=== PATIENT | female | born 1950 | race Caucasian/White ===

== ENCOUNTER 2019-03-19 10:38 | Observation (INO) | payer OTHER ==
[2019-03-19 10:52] VITALS: BMI 27.8
--- NOTE | 2019-03-19 11:11 | PDOC ---
History of Present Illness - General Chief Complaint: Chest Pain Stated Complaint: CHEST PAIN/SHORTNESS OF BREATH Time Seen by Provider: 03/19/19 11:09 - History of Present Illness Initial Comments: 03/19/19 11:10 68 yo F PMH GERD, cholecystectomy, HTN, HLD, hypothyroidism, lower back pain 2/ 2 disc herniations, PUD, p/w sternal burning chest pain. Further complains of chest pressure and difficulty breathing. Separate to this, states that she has been having a lot of "gas buildup that is relived by burping, but I can't burp it out anymore". Reports start of symptoms one week ago, called PCP and started omeprazole BID for presumed GERD, however pain became worse and burning. Today, also having associated difficulty getting a full breath and ongoing reflux, which convinced her to come in. Denies CP, TOMAS, N/V, fevers/chills, constipation/diarrhea, urinary changes. Past History - Past Medical History Allergies/Adverse Reactions: Allergies Allergy/AdvReac Type Severity Reaction Status Date / Time iodine Allergy Verified 03/19/19 10:55 nitrofurantoin Allergy Verified 03/19/19 10:55 [From Macrobid] nitrofurantoin Allergy Verified 03/19/19 10:55 macrocrystalline [From Macrobid] shellfish derived Allergy Verified 03/19/19 10:55 Sulfa (Sulfonamide Allergy Verified 03/19/19 10:55 Antibiotics) Home Medications: Ambulatory Orders Alprazolam [Xanax] 0.25 mg PO HS PRN #0 tablet 04/29/13 Metoprolol Succinate [Toprol XL -] 50 mg PO HS #0 tab.sr.24h 04/29/13 Rosuvastatin [Crestor -] 5 mg PO HS #0 tablet 04/29/13 Levothyroxine [Synthroid -] 75 mcg PO DAILY 07/02/15 Ranitidine [Zantac -] 150 mg PO BID 07/02/15 Polyethylene Glycol 3350 [Miralax (For Daily Use) -] 17 gm PO ASDIR 09/02/15 COPD: No GI Disorders: (Gastric reflux) HTN: Yes Hypercholesterolemia: Yes Thyroid Disease: Yes - Surgical History Cholecystectomy: Yes - Immunization History Immunization Up to Date: No - Psycho Social/Smoking Cessation Hx Smoking History: Never smoked Have you smoked in the past 12 months: No Information on smoking cessation initiated: No Hx Alcohol Use: No Drug/Substance Use Hx: No Substance Use Type: None Review of Systems - Review of Systems Constitutional: No: Chills, Diaphoresis, Fever HEENTM: No: Recent change in vision, Hearing Loss, Difficulty Swallowing Respiratory: Yes: Shortness of Breath. No: Cough, Orthopnea Cardiac (ROS): Yes: Chest Pain, Chest Tightness. No: Edema, Irregular Heart Rate, Lightheadedness, Palpitations ABD/GI: No: Constipated, Diarrhea, Nausea, Vomiting : No: Burning, Dysuria, Discharge, Frequency, Flank Pain Neurological: No: Headache, Numbness, Tingling, Weakness *Physical Exam - Vital Signs Last Vital Signs Temp Pulse Resp BP Pulse Ox 97.6 F 84 16 149/83 100 03/19/19 10:44 03/19/19 10:44 03/19/19 10:44 03/19/19 10:44 03/19/19 10:44 - Physical Exam Comments: 03/19/19 11:30 Gen: well-developed, well-nourished, mild distress Neuro: AAOX4, CN II-XII intact, FTN intact, EOMI, PERRLA, 5/5 strength, SILT HEENT: atraumatic, normocephalic, dry mucous membranes Neck: trachea midline, supple CV: regular rate, regular rhythm, no murmurs, rubs, or gallops Pulm: CTA b/l, no wheezing Abd: soft, non-distended, non-tender MSK: full ROM, intact pulses Extr: no edema, no deformities Skin: warm, dry Heart Score/ECG Review - History History: Moderately suspicious - Electrocardiogram EKG: Normal - Age Age: >/= 65 - Risk Factors Risk Factors Heart Score: Yes Hx Hypercholesterolemia, Yes Hx Hypertension, Yes Positive family hx of cardiac disease Based on the list above the patient has:: >/=3 risk factors or Hx atherosclerotic disease - Troponin Troponin: </= normal limit - Score Heart Score - Total: 5 ED Treatment Course - LABORATORY CBC & Chemistry Diagram: 03/19/19 11:34 03/19/19 11:34 Medical Decision Making - Medical Decision Making 03/19/19 11:27 ACS v GERD v PUD. - CBC, CMP, lipase - EKG, trop, CXR - Pepcid, Maalox, viscous lido, fluids - ctm EKG 85 bpm, normal sinus, ST depression in I, V5, V6, and II. 03/19/19 11:55 CXR with prominent aortic knob, no acute pathology. 03/19/19 14:06 Patient feeling unchanged despite GI cocktail. Will admit for r/o atypical chest pain. 03/19/19 16:24 Patient with possible IV contrast allergy. Will give 1 dose of hydrocortisone IV 200 mg now, then another dose in 4 hours with 50 mg IV diphenhydramine, with CT scans 1 hour after that. Discharge - Discharge Information Problems reviewed: Yes Clinical Impression/Diagnosis: Chest pain Condition: Stable - Follow up/Referral - Patient Discharge Instructions - Post Discharge Activity
[2019-03-19] MEDS ORDERED: LIDOCAINE VISCOUS 2% ORAL/TOP 20 ML UNIT-DOSE CUP MM ONE (11:21)
[2019-03-19] MEDS ORDERED: FAMOTIDINE 20 MG/50 ML IVPB 20 MG/50 ML MG IVPB ONE ×2 (11:21→11:33)
[2019-03-19] MEDS ORDERED: SODIUM CHLORIDE 1,000 ML IV STA (11:21)
[2019-03-19] MEDS ORDERED: MAG HYDROX/AL HYDROX/SIMETH 30 ML UNIT-DOSE CUP PO ONE (11:21)
[2019-03-19] MEDS ORDERED: MAG HYDROX/AL HYDROX/SIMETH 30 ML UNIT-DOSE CUP ONE (11:32)
[2019-03-19] MEDS ORDERED: LIDOCAINE VISCOUS 2% ORAL/TOP 20 ML UNIT-DOSE CUP ONE (11:32)
[2019-03-19 12:09] LABS: BASO % 0.4 % (0-2.0); EOS % 0.5 % (0-4.5); HEMATOCRIT 46.8 % (32.4-45.2); HEMOGLOBIN 15.6 GM/dL (10.7-15.3); LYMPH % 27.4 % (8-40); MCH 31.2 pg (25.7-33.7); MCHC 33.3 g/dl (32.0-36.0); MEAN CELL VOLUME 93.6 fl (80-96); MEAN PLT VOLUME 8.4 fl (7.5-11.1); MONO % 9.2 % (3.8-10.2); NEUT % 62.5 % (42.8-82.8); PLATELET COUNT 374 K/MM3 (134-434); RDW 13.9 % (11.6-15.6); WHITE BLOOD COUNT 7.3 K/mm3 (4.0-10.0)
[2019-03-19 12:34] LABS: ALBUMIN 4.3 g/dl (3.4-5.0); BILIRUBIN,TOTAL 0.6 mg/dL (0.2-1); BLOOD UREA NITROGEN 12.6 mg/dL (7-18); CALCIUM 9.5 mg/dL (8.5-10.1); CREATININE 0.7 mg/dL (0.55-1.3); TOT PROT 8.4 g/dl (6.4-8.2)
[2019-03-19 12:46] LABS: INR 0.93 (0.83-1.09)
[2019-03-19] MEDS ORDERED: ONDANSETRON 4 MG/2 ML VIAL IVPUSH ONE (14:04)
[2019-03-19] MEDS ORDERED: morphine CARPU-JECT 4 MG/1 ML DISP.SYRIN IVPUSH ONE (14:04)
[2019-03-19] MEDS ORDERED: MORPHINE SULFATE 2 MG/ML VIAL ONE (14:32)
[2019-03-19] MEDS ORDERED: ONDANSETRON 4 MG/2 ML VIAL ONE (14:32)
--- NOTE | 2019-03-19 15:24 | PDOC ---
Documentation entered by Justice Chavez SCRIBE, acting as scribe for Elver Foley MD. Elver Foley MD: This documentation has been prepared by the Scott mac Daniel, SCRIBE, under my direction and personally reviewed by me in its entirety. I confirm that the documentation accurately reflects all work, treatment, procedures, and medical decision making performed by me. Attending Attestation - Resident Resident Name: MondragonFely - ED Attending Attestation I have performed the following: I have examined & evaluated the patient, The case was reviewed & discussed with the resident, I agree w/resident's findings & plan, Exceptions are as noted - HPI HPI: 03/19/19 11:52 The patient is a 68 year old female with a past medical history of GERD, HTN, HLD, hypothyroidism, disc herniations, and PUD here today for evaluation of epigastric pain. The patient reports that her epigastric pain radiates up through her chest into her throat, is a burning sensation, started one week ago , and has been getting worse. She also notes shortness of breath for the past few days which she describes as needing to burp. Patient reports taking 9 tablespoons of Gaviscon and her daily omeprazole at home without relief of her symptoms. Patient denies headache, lightheadedness, focal weakness/numbness. Denies fever , chills. Denies nausea, vomiting, abdominal pain, diarrhea. Denies calf pain or lower extremity edema. Allergies: iodine, nitrofurantoin, nitrofurantoin macrocrystalline, sulfa, shellfish Surgical history: cholecystectomy - Physicial Exam PE: 03/19/19 12:37 GENERAL: Awake, alert, and fully oriented, in no acute distress, pleasant. EYES: PERRLA, EOMI, sclera anicteric, conjunctiva clear ENT: Oropharynx clear without exudates. Moist mucosa NECK: Normal ROM, supple, no lymphadenopathy, JVD, or masses LUNGS: Breath sounds equal, clear to auscultation bilaterally. No wheezes, and no crackles HEART: Regular rate and rhythm, normal S1 and S2, no murmurs, rubs or gallops ABDOMEN: Soft, nontender, normoactive bowel sounds. No guarding, no rebound. No masses EXTREMITIES: Normal range of motion, no edema. No cords, erythema, or tenderness. Equal pulses and BP b/l BACK: No midline spinal tenderness in cervical/thoracic/lumbar region NEUROLOGICAL: Normal speech, cranial nerves intact, 5/5 strength in all 4 extremities, normal sensation to light touch in all 4 extremities, normal cerebellar exam, normal gait SKIN: Warm, Dry, normal turgor, no rashes or lesions noted. - Medical Decision Making 68-year-old female with a history of GERD presents the emergency department with epigastric pain radiating up to her throat, describes it as burning at times as well as a pressure in her chest. Patient continues to have chest pain despite home omeprazole, and Pepcid, Maalox, viscous lidocaine, zofran, morphine in the emergency department. Chest x-ray with widened mediastinum. As such we will obtain a CTA to rule out dissection. Anticipate admission. Per instrument/control technician, pt has had IV contrast allergy in the past (was listed only as iodine allergy) Pt states "I think I had throat itching and felt warm last time I had IV contrast." She states she did not require medications, intubation, but does not remember the exact details. As such, we initiated a 6 hour pre-treatment protocol as follows Two doses of 200 mg intravenous hydrocortisone administered 5 and 1 hour prior to contrast material administration, plus 50 mg intravenous diphenhydramine administered 1 hour prior to contrast material administration. Case has been discussed with admitting team for continuation of protocol to obtain CTA and further mgmt Case discussed in detail with admitting physician including history, physical exam and ancillary studies. Admitting physician has assumed care for the patient, will follow all pending diagnostics and will complete the evaluation and treatment. Heart Score/ECG Review #1 03/19/19 15:27 Twelve-lead EKG was performed and reviewed by me. Normal sinus rhythm, rate 85. Normal axis. No ST elevations. ST depressions in 1, 2, V5 and V6.
--- NOTE | 2019-03-19 15:51 | EKG ---
Test Reason : Blood Pressure : / mmHG Vent. Rate : 085 BPM Atrial Rate : 085 BPM P-R Int : 128 ms QRS Dur : 084 ms QT Int : 382 ms P-R-T Axes : 073 020 034 degrees QTc Int : 454 ms NORMAL SINUS RHYTHM POSSIBLE LEFT ATRIAL ENLARGEMENT NONSPECIFIC ST ABNORMALITY ABNORMAL ECG WHEN COMPARED WITH ECG OF 02-SEP-2015 10:11, NO SIGNIFICANT CHANGE WAS FOUND Confirmed by ARACELY HIDALGO, EULALIA ([id number]) on 03/19/2019 3:51:02 PM Referred By: Confirmed By:EULALIA JESSICA MD
[2019-03-19] MEDS ORDERED: HYDROCORTISONE SOD SUCCINATE 100 MG/2 ML VIAL IVPUSH ONE ×2 (16:23→20:20)
[2019-03-19] MEDS ORDERED: HYDROCORTISONE SOD SUCCINATE ONE ×2 (16:37→19:43)
--- NOTE | 2019-03-19 17:28 | HP ---
CHIEF COMPLAINT: Burning chest pain PCP: HISTORY OF PRESENT ILLNESS: 68 yo F PMH GERD, cholecystectomy, haital hernia, HTN, HLD, hypothyroidism, lower back pain 2/2 disc herniations, PUD, p/w substernal burning chest pain of one week duration that is associated with nausea and difficulty breathing. Pt reports that one week ago, she called her PCP for the burning sensation, and he recommended taking PPIs for 3 days, which did not relieve her symptoms. After stopping her PPI, her symptoms began to worsen. On saturday 03/17, pt had difficulty keeping food down and felt "fullness" in her chest and therefore she tried to sleep it off. night she had severe burning pain which made it difficult for her to breath. She has been admitted at [facility] in the past for epigastric pain, during which Dr. No saw her and CT a/p did not reveal any acute abnormalities. Currently, pt denies f/c/v/d, abdominal pain, melena, urinary symptoms, back pain, palpitations. ER course was notable for: (1)Zofran given (2)EKG- NSR (3)CTA A/p ordered-r/o aortic dissection Recent Travel: denies PAST MEDICAL HISTORY: GERD,haital hernia, HTN, HLD, hypothyroidism, lower back pain 2/2 disc herniations, PUD, PAST SURGICAL HISTORY: Cholecystectomy, endoscopy 10 years ago for PUD. Social History: Smoking:denies Alcohol:denies Drugs: denies Allergies iodine Allergy (Verified 03/19/19 10:55) nitrofurantoin [From Macrobid] Allergy (Verified 03/19/19 10:55) nitrofurantoin macrocrystalline [From Macrobid] Allergy (Verified 03/19/19 10:55 ) shellfish derived Allergy (Verified 03/19/19 10:55) Sulfa (Sulfonamide Antibiotics) Allergy (Verified 03/19/19 10:55) HOME MEDICATIONS: Home Medications Medication Instructions Recorded Alprazolam [Xanax] 0.25 mg PO HS PRN #0 tablet 04/29/13 Metoprolol Succinate [Toprol XL -] 50 mg PO HS #0 tab.sr.24h 04/29/13 Rosuvastatin [Crestor -] 5 mg PO HS #0 tablet 04/29/13 Levothyroxine [Synthroid -] 75 mcg PO DAILY 07/02/15 Ranitidine [Zantac -] 150 mg PO BID 07/02/15 Polyethylene Glycol 3350 [Miralax 17 gm PO ASDIR 09/02/15 (For Daily Use) -] REVIEW OF SYSTEMS CONSTITUTIONAL: Absent: fever, chills, weight change HEENT: Absent: visual changes CARDIOVASCULAR: Absent: syncope, palpitations, lightheadedness, peripheral edema RESPIRATORY: Absent: cough, shortness of breath, orthopnea, wheezing, stridor, GASTROINTESTINAL: Absent: abdominal pain, nausea, vomiting, diarrhea, constipation, melena, hematochezia NEUROLOGIC: Absent: headache, focal weakness or paresthesias, dizziness, bladder or bowel incontinence PHYSICAL EXAMINATION Vital Signs - 24 hr 03/19/19 03/19/19 03/19/19 10:44 14:43 14:44 Temperature 97.6 F 97.5 F L Pulse Rate 84 Pulse Rate [ 89 Apical] Respiratory 16 18 Rate Blood Pressure 149/83 Blood Pressure 142/73 [Right Arm] O2 Sat by Pulse 100 100 99 Oximetry (%) GENERAL: Awake, alert, and fully oriented, in no acute distress. EYES: Pupils equal, round and reactive to light, EARS, NOSE, THROAT: Moist mucous membranes. NECK: supple without lymphadenopathy, JVD, LUNGS: Breath sounds equal, clear to auscultation bilaterally. No wheezes, and no crackles. HEART: Regular rate and rhythm, normal S1 and S2 without murmur, rub or gallop. ABDOMEN: Soft, nontender, +distended, normoactive bowel sounds, no guarding, no rebound, no masses. MUSCULOSKELETAL: Normal range of motion at all joints. No CVA tenderness. UPPER EXTREMITIES: 2+ pulses, warm, well-perfused. LOWER EXTREMITIES: 2+ pulses, warm, well-perfused. NEUROLOGICAL: Cranial nerves II-XII intact. SKIN: Warm, dry, Laboratory Results - last 24 hr CBC,CMP WBC 7.3 K/mm3 (4.0-10.0) 03/19/19 11:34 RBC 5.00 M/mm3 (3.60-5.2) 03/19/19 11:34 Hgb 15.6 GM/dL (10.7-15.3) H 03/19/19 11:34 Hct 46.8 % (32.4-45.2) H 03/19/19 11:34 MCV 93.6 fl (80-96) 03/19/19 11:34 MCH 31.2 pg (25.7-33.7) 03/19/19 11:34 MCHC 33.3 g/dl (32.0-36.0) 03/19/19 11:34 RDW 13.9 % (11.6-15.6) 03/19/19 11:34 Plt Count 374 K/MM3 (134-434) D 03/19/19 11:34 MPV 8.4 fl (7.5-11.1) 03/19/19 11:34 Absolute Neuts (auto) 4.6 K/mm3 (1.5-8.0) 03/19/19 11:34 Neutrophils % 62.5 % (42.8-82.8) 03/19/19 11:34 Lymphocytes % 27.4 % (8-40) 03/19/19 11:34 Monocytes % 9.2 % (3.8-10.2) 03/19/19 11:34 Eosinophils % 0.5 % (0-4.5) 03/19/19 11:34 Basophils % 0.4 % (0-2.0) 03/19/19 11:34 Nucleated RBC % 0 % (0-0) 03/19/19 11:34 Sodium 138 mmol/L (136-145) 03/19/19 11:34 Potassium 4.0 mmol/L (3.5-5.1) 03/19/19 11:34 Chloride 100 mmol/L (98-107) 03/19/19 11:34 Carbon Dioxide 30 mmol/L (21-32) 03/19/19 11:34 Anion Gap 8 MMOL/L (8-16) 03/19/19 11:34 BUN 12.6 mg/dL (7-18) 03/19/19 11:34 Creatinine 0.7 mg/dL (0.55-1.3) 03/19/19 11:34 Est GFR (CKD-EPI)AfAm 102.46 03/19/19 11:34 Est GFR (CKD-EPI)NonAf 88.40 03/19/19 11:34 Random Glucose 84 mg/dL (74-106) 03/19/19 11:34 Calcium 9.5 mg/dL (8.5-10.1) 03/19/19 11:34 Total Bilirubin 0.6 mg/dL (0.2-1) 03/19/19 11:34 AST 21 U/L (15-37) 03/19/19 11:34 ALT 27 U/L (13-61) 03/19/19 11:34 Alkaline Phosphatase 97 U/L (45-117) 03/19/19 11:34 Creatine Kinase 220 U/L (26-192) H 03/19/19 11:34 Creatine Kinase Index 1.4 % (0.0-5.0) 03/19/19 11:34 CK-MB (CK-2) 3.2 ng/mL (0.5-3.6) 03/19/19 11:34 Troponin I < 0.02 ng/ml (0.00-0.05) 03/19/19 11:34 Total Protein 8.4 g/dl (6.4-8.2) H 03/19/19 11:34 Albumin 4.3 g/dl (3.4-5.0) 03/19/19 11:34 Total Amylase 69 U/L (25-115) 03/19/19 11:34 Lipase 286 U/L (73-393) 03/19/19 11:34 ASSESSMENT/PLAN: 68 yo F PMH GERD, cholecystectomy, haital hernia, HTN, HLD, hypothyroidism, lower back pain 2/2 disc herniations, PUD, p/w atypical chest pain likely 2/2 to #GERD vs esophagititis vs Aortic Dissection CT chest- r/o aortic dissection CT a/p ordered r/p 2nd trops- f/u in am IV protonix NPO after midnight except for PO meds PA lateral x-ray- previous x-ray was poor quality Hydrocortisone given to reduce allergic rxn to contrast 1g Caraphate 4x/day Consider GI consult in the am after imaging results come back #HTN continue toprol #HLD continue crestor #Hypothyroidism cont levothyroxine #DVT ppx SCDs FEN IVF- gentle hydration at 80 mls/hr NPO after midnight Dispo: f/u imaging for r/o of aortic dissection, monitor b/l arm BP Visit type - Emergency Visit Emergency Visit: Yes ED Registration Date: 03/19/19 Care time: The patient presented to the Emergency Department on the above date and was hospitalized for further evaluation of their emergent condition. - New Patient This patient is new to me today: Yes Date on this admission: 03/20/19 - Critical Care Critical Care patient: No ATTENDING PHYSICIAN STATEMENT I saw and evaluated the patient. I reviewed the resident's note and discussed the case with the resident. I agree with the resident's findings and plan as documented. SUBJECTIVE: OBJECTIVE: ASSESSMENT AND PLAN:
[2019-03-19] MEDS: SODIUM CHLORIDE 1,000 ML IV SCH (17:43)
[2019-03-19] MEDS: PANTOPRAZOLE SODIUM 40 MG VIAL IVPUSH SCH (17:43)
[2019-03-19] MEDS ORDERED: PANTOPRAZOLE SODIUM 40 MG VIAL ONE (17:45)
[2019-03-19] MEDS ORDERED: SUCRALFATE 1 GM TABLET (FP) ONE (17:45)
[2019-03-19] MEDS: SUCRALFATE 1 GM TABLET (FP) PO SCH ×2 (18:06→23:31)
--- NOTE | 2019-03-19 19:25 | PN ---
Teaching Attending Note Name of Resident: Philippe Hernandez ATTENDING PHYSICIAN STATEMENT I saw and evaluated the patient. I reviewed the resident's note and discussed the case with the resident. I agree with the resident's findings and plan as documented. SUBJECTIVE: CC: CP HPI: 68 y/o lady with h/o hiatal hernia, GERD, PUD, HTN, HLp, hypothyroidism, chronic lower back pain, disk herniation , cholecystectomy, and BCC on back and other medical problems who presented with CP. chest pain started a week ago, intermitted, last 2 days became constant. in retrosternal area, feels , like burning, relieved by burping, yawning and standing up. worse with lying down. she called her PCP who prescribed anti-acid and PPI BID which initially relived the pain, then worsened when she switched to daily dosing. has poor po intake in past few days last EGD was > [address] Vance. no recent stress test or echo. she reports hoarse voice x 2 days. difficulty catching her breath withheaviness when burning is severe. no light headedness, syncope, TOMAS , or palpitations OBJECTIVE: BP per my exam: 158/89 in arm, 156/87 in L arm . HR 70s . NAD , awake, alert , pleasant, cooperative . dry MM CV; RRR, 2/6 SM at LUSB. Lungs: CTAB Abd: limited exam, as patient is in hallway, no tenderness Ext : No edema or erythema. on upper or lower extremities . RP 2+ b/l and symmetric Neuro: EOMI, round equal pupils, reactive to light, no facial droop. strength 5/ 5 in upper and lwoere xtremities proximally and distally ASSESSMENT AND PLAN: 68 y/o lady with h/o hiatal hernia, GERD, PUD, HTN, HLp, hypothyroidism, chronic lower back pain, disk herniation , cholecystectomy, and BCC on back and other medical problems who presented with CP 1- Atypical CP. I do not suspect ACS in this case. EKG with sinus rhythm, no ischemic changes, Qtc 454. GI pathology ( GERD/esophagitis) is suspected especially with hiatal hernia and the description of her pain. can't r/o ulceration - cxray reviewed, rotated. - add carafate, and PPI - IVF for hydration, might have hemeconcentration - CTA ordered by ER, with premedication with hydrocortisone and benadryl. explained procedure to patient and she agrees - if CTA is neg , will ask GI to evaluate for possible EGD. make NPO after MN 2- H/o HTN : cont her meds of toprol HS 3- h/o hypothyroidism : cont synthroid Scds tonight , start Sq heparin tomorrow possibly
[2019-03-19] MEDS ORDERED: ALPRAZolam 0.25 MG TABLET PO PRN (19:29)
[2019-03-19] MEDS: ROSUVASTATIN CA 5 MG TABLET (FP) PO SCH (23:30)
[2019-03-20] MEDS: LEVOTHYROXINE NA 75 MCG TABLET (FP) PO SCH (06:06)
[2019-03-20 08:12] LABS: BASO % 0.4 % (0-2.0); HEMATOCRIT 38.6 % (32.4-45.2); HEMOGLOBIN 13.8 GM/dL (10.7-15.3); LYMPH % 19.2 % (8-40); MCH 33.4 pg (25.7-33.7); MCHC 35.7 g/dl (32.0-36.0); MEAN CELL VOLUME 93.4 fl (80-96); MEAN PLT VOLUME 8.6 fl (7.5-11.1); MONO % 6.9 % (3.8-10.2); NEUT % 73.5 % (42.8-82.8); PLATELET COUNT 306 K/MM3 (134-434); RBC 4.13 M/mm3 (3.60-5.2); RDW 13.5 % (11.6-15.6); WHITE BLOOD COUNT 10.9 K/mm3 (4.0-10.0)
[2019-03-20 09:04] LABS: ALBUMIN 3.5 g/dl (3.4-5.0); BILIRUBIN,TOTAL 0.8 mg/dL (0.2-1); BLOOD UREA NITROGEN 11.5 mg/dL (7-18); CALCIUM 8.8 mg/dL (8.5-10.1); CREATININE 0.7 mg/dL (0.55-1.3); POTASSIUM 4.1 mmol/L (3.5-5.1)
[2019-03-20] MEDS ORDERED: PT OWN MED DRAWER 7, Y5N ONE (09:53)
[2019-03-20] MEDS: SUCRALFATE 1 GM TABLET (FP) PO SCH ×4 (10:01→21:17)
[2019-03-20] MEDS: PANTOPRAZOLE SODIUM 40 MG VIAL IVPUSH SCH (10:01)
--- NOTE | 2019-03-20 13:50 | DS ---
Physical Exam: SUBJECTIVE: Patient seen and examined OBJECTIVE: Vital Signs Period Temp Pulse Resp BP Sys/Jackman Pulse Ox Last 24 Hr 97.5 F-98.2 F 74-89 16-20 135-151/66-96 99-100 PHYSICAL EXAM GENERAL: The patient is awake, alert, and fully oriented, in no acute distress. HEAD: Normal with no signs of trauma. EYES: PERRL, extraocular movements intact, sclera anicteric, conjunctiva clear. ENT: Ears normal, nares patent, oropharynx clear without exudates, moist mucous membranes. NECK: Trachea midline, full range of motion, supple. LUNGS: Breath sounds equal, clear to auscultation bilaterally, no wheezes, no crackles, no accessory muscle use. HEART: Regular rate and rhythm, S1, S2 without murmur, rub or gallop. ABDOMEN: Soft, nontender, nondistended, normoactive bowel sounds, no guarding, no rebound, no hepatosplenomegaly, no masses. EXTREMITIES: 2+ pulses, warm, well-perfused, no edema. NEUROLOGICAL: Cranial nerves II through XII grossly intact. Normal speech, gait not observed. PSYCH: Normal mood, normal affect. SKIN: Warm, dry, normal turgor, no rashes or lesions noted. LABS Laboratory Results - last 24 hr 03/19/19 03/20/19 03/20/19 21:30 05:55 05:55 WBC 10.9 H RBC 4.13 Hgb 13.8 Hct 38.6 D MCV 93.4 MCH 33.4 MCHC 35.7 RDW 13.5 Plt Count 306 MPV 8.6 Absolute Neuts (auto) 8.0 Neutrophils % 73.5 Lymphocytes % 19.2 D Monocytes % 6.9 Eosinophils % 0.0 D Basophils % 0.4 Nucleated RBC % 0 Sodium 141 Potassium 4.1 Chloride 107 Carbon Dioxide 26 Anion Gap 8 BUN 11.5 Creatinine 0.7 Est GFR (CKD-EPI)AfAm 102.46 Est GFR (CKD-EPI)NonAf 88.40 Random Glucose 103 Calcium 8.8 Total Bilirubin 0.8 AST 13 L ALT 22 Alkaline Phosphatase 84 Troponin I < 0.02 Total Protein 7.0 Albumin 3.5 HOSPITAL COURSE: Date of Admission:03/19/19 68 yo F PMH GERD, cholecystectomy, haital hernia, HTN, HLD, hypothyroidism, lower back pain 2/2 disc herniations, PUD, p/w atypical chest pain likely 2/2 to Date of Discharge: 03/20/19 Discharge Summary Problems reviewed: Yes Reason For Visit: CHEST PAIN Condition: Improved - Instructions Diet, Activity, Other Instructions: You were admitted to the hospital for burning chest pain and difficulty breathing While you were in the hospital, we evaluated you for possible causes of your symptoms with lab work, blood work, imaging such as x rays of your chest, CAT scan of your chest, CAT scan of your Abdomen and EKGs. We treated you for your chest pain with medications and your symptoms improved. Your Plastics Worker, Dr. Vance will see you at his clinic. Please set up an appointment to see Dr. Vance at his clinic. Continue all your home meds as prescribed Follow up with your primary care physician in 1 week. Return to the emergency room if you have chest pain, shortness of breath, nausea , vomiting or worsening of symptoms. Referrals: Collins Kaur MD [Primary Care Provider] - Ian Vance MD [Staff Physician] - Disposition: HOME - Home Medications Comprehensive Discharge Medication List: Ambulatory Orders Alprazolam [Xanax] 0.25 mg PO HS PRN #0 tablet 04/29/13 Metoprolol Succinate [Toprol XL -] 50 mg PO HS #0 tab.sr.24h 04/29/13 Rosuvastatin [Crestor -] 5 mg PO HS #0 tablet 04/29/13 Levothyroxine [Synthroid -] 75 mcg PO DAILY 07/02/15 Ranitidine [Zantac -] 150 mg PO BID 07/02/15 Polyethylene Glycol 3350 [Miralax (For Daily Use) -] 17 gm PO ASDIR 09/02/15 Epinastine HCl 5 ml OU DAILY 03/20/19 Ketorolac 0.5% Eye Drop 1 drop OU BID 03/20/19 Neomycin/Polymyxin B/Dexametha [Vcgobk-Gmahw-Vwvihic Eye Ointm] 3.5 gm OP HS 06/07 ATTENDING PHYSICIAN STATEMENT I saw and evaluated the patient. I reviewed the resident's note and discussed the case with the resident. I agree with the resident's findings and plan as documented. SUBJECTIVE: OBJECTIVE: ASSESSMENT AND PLAN:
--- NOTE | 2019-03-20 15:52 | CON.GI ---
Consult Consult Specialty:: Gastroenterology Referred by:: Dr. Floyd Gates Reason for Consultation:: Heartburn - History of Present Illness Chief Complaint: Lower retrosternal burning pain and belching History of Present Illness: 68F is admitted for lower retrosternal burning pain associated with gaseous bloating, inability to adequately belch and a globus sensation. She intimates that this may be related to the tremendous stress she is facing with her 's recent diagnosis or prostate cancer and her mother' s dementia. She recognizes this as the acid reflux problem that has flared up from time to time. It arose when she stopped Ranitidine but did not respond adequately to Omeprazole BID and Gaviscon. She is feeling relief with Pantoprazole. She has a dysphagia-globus sensation but had not had to regurgitate anything. She was able to eat her lunch today. No recent weight loss. I last saw her in the office on 07/21/15 when we set up a screening colonoscopy but she did not follow through with it. I have been trying to get this done since she became my patient. She last had a colonoscopy with Dr Steven Nava on 05/04/05 which revealed only diverticulosis. I last performed an EGD for her on 12/11/10 which revealed a small sliding hiatal hernia and a normal esophagus. Her maternal GM had colon cancer at age 53. - History Source History Provided By: Patient Limitations to Obtaining History: No Limitations - Past Medical History Cardio/Vascular: Yes: HTN, Hyperlipdemia Gastrointestinal: Yes: Diverticulosis, GERD Renal/: Yes: Other (interstitial cystitis ) Psych: Yes: Anxiety Musculoskeletal: Yes: Chronic low back pain (sciatica) Endocrine: Yes: Hypothyroidism Dermatology: Yes: Other (skin cancer excisions from the back) - Past Surgical History Past Surgical History: Yes: Cataract Removal (bilateral ), Cholecystectomy ( laparoscopic), Colonoscopy, , Upper Endoscopy - Alcohol/Substance Use Hx Alcohol Use: No - Smoking History Smoking history: Never smoked Have you smoked in the past 12 months: No - Social History Usual Living Arrangement: With Spouse ADL: Independent 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 Place of : [employer] History of Recent Travel: No Home Medications - Allergies Allergies/Adverse Reactions: Allergies Allergy/AdvReac Type Severity Reaction Status Date / Time Iodinated Contrast Media Allergy Verified 03/19/19 18:44 iodine Allergy Verified 03/19/19 10:55 nitrofurantoin Allergy Verified 03/19/19 10:55 [From Macrobid] nitrofurantoin Allergy Verified 03/19/19 10:55 macrocrystalline [From Macrobid] shellfish derived Allergy Verified 03/19/19 10:55 Sulfa (Sulfonamide Allergy Verified 03/19/19 10:55 Antibiotics) - Home Medications Home Medications: Ambulatory Orders Alprazolam [Xanax] 0.25 mg PO HS PRN #0 tablet 04/29/13 Metoprolol Succinate [Toprol XL -] 50 mg PO HS #0 tab.sr.24h 04/29/13 Rosuvastatin [Crestor -] 5 mg PO HS #0 tablet 04/29/13 Epinastine HCl 5 ml OU DAILY 03/20/19 Ketorolac 0.5% Eye Drop 1 drop OU BID 03/20/19 Levothyroxine [Synthroid -] 88 mcg PO DAILY 03/20/19 Neomycin/Polymyxin B/Dexametha [Yraazq-Snetn-Kbjerou Eye Ointm] 3.5 gm OP HS 06/07 Pantoprazole Sodium [Protonix] 40 mg PO DAILY #30 tablet. 03/20/19 Valacyclovir HCl [Valtrex] 500 mg PO DAILY 03/20/19 Family Medical History Family Hx Cancer: Grandmother (maternal) (colon cancer age 53) Other Family History: Mother has dementia, fibromyalgia and depression. Father had dementia Review of Systems - Review of Systems Constitutional: reports: Malaise Eyes: reports: No Symptoms HENT: reports: Hearing Loss Neck: reports: No Symptoms Cardiovascular: reports: Chest Pain (burning) Respiratory: reports: SOB Gastrointestinal: reports: Bloating, Dysphagia (globus- no regurgitation), Indigestion Psychiatric: reports: Anxiety Physical Exam-GI Vital Signs: Vital Signs Temperature 98.0 F 03/20/19 13:59 Pulse Rate 73 03/20/19 13:59 Respiratory Rate 16 03/20/19 13:59 Blood Pressure 145/79 03/20/19 13:59 O2 Sat by Pulse Oximetry (%) 100 03/20/19 00:13 CBC,CMP WBC 10.9 K/mm3 (4.0-10.0) H 03/20/19 05:55 RBC 4.13 M/mm3 (3.60-5.2) 03/20/19 05:55 Hgb 13.8 GM/dL (10.7-15.3) 03/20/19 05:55 Hct 38.6 % (32.4-45.2) D 03/20/19 05:55 MCV 93.4 fl (80-96) 03/20/19 05:55 MCH 33.4 pg (25.7-33.7) 03/20/19 05:55 MCHC 35.7 g/dl (32.0-36.0) 03/20/19 05:55 RDW 13.5 % (11.6-15.6) 03/20/19 05:55 Plt Count 306 K/MM3 (134-434) 03/20/19 05:55 MPV 8.6 fl (7.5-11.1) 03/20/19 05:55 Absolute Neuts (auto) 8.0 K/mm3 (1.5-8.0) 03/20/19 05:55 Neutrophils % 73.5 % (42.8-82.8) 03/20/19 05:55 Lymphocytes % 19.2 % (8-40) D 03/20/19 05:55 Monocytes % 6.9 % (3.8-10.2) 03/20/19 05:55 Eosinophils % 0.0 % (0-4.5) D 03/20/19 05:55 Basophils % 0.4 % (0-2.0) 03/20/19 05:55 Nucleated RBC % 0 % (0-0) 03/20/19 05:55 Sodium 141 mmol/L (136-145) 03/20/19 05:55 Potassium 4.1 mmol/L (3.5-5.1) 03/20/19 05:55 Chloride 107 mmol/L (98-107) 03/20/19 05:55 Carbon Dioxide 26 mmol/L (21-32) 03/20/19 05:55 Anion Gap 8 MMOL/L (8-16) 03/20/19 05:55 BUN 11.5 mg/dL (7-18) 03/20/19 05:55 Creatinine 0.7 mg/dL (0.55-1.3) 03/20/19 05:55 Est GFR (CKD-EPI)AfAm 102.46 03/20/19 05:55 Est GFR (CKD-EPI)NonAf 88.40 03/20/19 05:55 Random Glucose 103 mg/dL (74-106) 03/20/19 05:55 Calcium 8.8 mg/dL (8.5-10.1) 03/20/19 05:55 Total Bilirubin 0.8 mg/dL (0.2-1) 03/20/19 05:55 AST 13 U/L (15-37) L 03/20/19 05:55 ALT 22 U/L (13-61) 03/20/19 05:55 Alkaline Phosphatase 84 U/L (45-117) 03/20/19 05:55 Creatine Kinase 220 U/L (26-192) H 03/19/19 11:34 Creatine Kinase Index 1.4 % (0.0-5.0) 03/19/19 11:34 CK-MB (CK-2) 3.2 ng/mL (0.5-3.6) 03/19/19 11:34 Troponin I < 0.02 ng/ml (0.00-0.05) 03/19/19 21:30 Total Protein 7.0 g/dl (6.4-8.2) 03/20/19 05:55 Albumin 3.5 g/dl (3.4-5.0) 03/20/19 05:55 Total Amylase 69 U/L (25-115) 03/19/19 11:34 Lipase 286 U/L (73-393) 03/19/19 11:34 Current Medications Generic Name Dose Route Start Last Admin Trade Name Freq PRN Reason Stop Dose Admin Alprazolam 0.25 mg 03/19/19 19:29 Xanax - PO HS PRN For Anxiety Sodium Chloride 1,000 mls @ 83 mls/hr 03/19/19 17:15 03/19/19 17:43 Normal Saline - IV 83 mls/hr ASDIR ESPERANZA Administration Levothyroxine Sodium 75 mcg 03/20/19 07:00 03/20/19 06:06 Synthroid - PO 75 mcg AM ESPERANZA Administration Metoprolol Succinate 50 mg 03/19/19 22:00 03/19/19 23:31 Toprol Xl - PO 50 mg HS ESPERANZA Administration Pantoprazole Sodium 40 mg 03/19/19 17:05 03/20/19 10:01 Protonix Iv IVPUSH 40 mg DAILY ESPERANZA Administration Rosuvastatin Calcium 5 mg 03/19/19 22:00 03/19/19 23:30 Crestor - PO 5 mg HS ESPERANZA Administration Sucralfate 1 gm 03/19/19 18:00 03/20/19 13:28 Carafate - PO 1 gm QID ESPERANZA Administration Constitutional: Yes: Anxious Eyes: Yes: Conjunctiva Clear HENT: Yes: Atraumatic, Tonsillar Exudate Cardiovascular: Yes: Regular Rate and Rhythm Respiratory: Yes: CTA Bilaterally Gastrointestinal Inspection: Yes: Distention, Scars (healed vertical and laparoscopic incisions) ...Auscultate: Yes: Normoactive Bowel Sounds ...Palpate: Yes: Soft, Other (nontender) ...Percussion: Yes: Tympanitic ...Rectal Exam: Yes: Guaiac Negative (no masses, brown g neg stool) Edema: No Neurological: Yes: Alert, Oriented Labs: CBC, BMP 03/20/19 05:55 03/20/19 05:55 INR, PTT INR 0.93 (0.83-1.09) 03/19/19 11:34 Imaging - Results Cat Scan: Report Reviewed ( Final Report CT ABDOMEN/PELVIS CTA W/WO CONTR Show Printer-Friendly Version Patient Name: Saltydeni Marta : 1950 ID: [id number] Study Date: 19-Mar-2019 22:06 Erin Pavilimyke Name: MARTA LOW DEPARTMENT OF RADIOLOGY Phys: Elver Foley MD : 1950 Age: 68 Sex: F [facility] Acct: [id number] Loc: [address] Exam Date: 03/19/19 Status: [place] [address] Unit Number: [id number] EXAM#: TYPE/EXAM: RESULT: [id number] CT/ CHEST CTA [id number] CT/ABDOMEN/PELVIS CTA W/WO CONTR HISTORY PROVIDED: Rule out dissection. TECHNIQUE: Sequential axial images were obtained from the thoracic inlet through the domes of the diaphragm both prior to and following the administration of intravenous contrast material. CTA protocol of the aorta was utilized, including coronal and sagittal MIP images. The thoracic aorta is normal in position and caliber with no evidence of aneurysmal dilatation or dissection. The lung lezama are free of pulmonary masses, areas of acute consolidation or pleural effusions. No mediastinal masses, fluid collections or lymphadenopathy are identified. The heart is not enlarged. The abdominal aorta is normal in position and caliber with no evidence of aneurysmal dilatation or dissection. The branches of the aorta, including the celiac axis, SMA, bilateral renal arteries, NAV and bilateral common iliac arteries are widely patent. There is scattered atherosclerotic plaque throughout these vessels. The liver, spleen, pancreas, adrenal glands and kidneys demonstrate no significant abnormalities. There is mild cortical scarring of the left kidney. There is no evidence of intra-abdominal or retroperitoneal lymphadenopathy or fluid collections. There is no evidence of pneumoperitoneum, bowel obstruction or intra-abdominal abscess. There is no CT evidence of acute appendicitis. There is diverticulosis of the left colon with no evidence of acute diverticulitis. Examination of the pelvis demonstrates no evidence of pelvic masses, fluid collections or lymphadenopathy. There is no evidence of acute bony pathology. IMPRESSION: 1. No evidence of thoracic or abdominal aortic aneurysm or dissection. 2. No acute pathology within the chest, abdomen or pelvis. Please see above discussion. Reported By: Junaid Mccollum MD 03/20/19899 Technologist: Basim Waldron Transcribed Date/Time: 03/20/19899 Dental Assisting Instructor: Junaid Mccollum Printed Date/Time: By: Signed by: Junaid Mccollum Signed on: 20-Mar-2019 09:01) Problem List - Problems (1) Hiatal hernia with GERD Code(s): K21.9 - GASTRO-ESOPHAGEAL REFLUX DISEASE WITHOUT ESOPHAGITIS; K44.9 - DIAPHRAGMATIC HERNIA WITHOUT OBSTRUCTION OR GANGRENE (2) Diverticula of colon Code(s): K57.30 - DVRTCLOS OF LG INT W/O PERFORATION OR ABSCESS W/O BLEEDING (3) Hypertension Code(s): I10 - ESSENTIAL (PRIMARY) HYPERTENSION (4) Hyperlipidemia Code(s): E78.5 - HYPERLIPIDEMIA, UNSPECIFIED (5) Hypothyroid Code(s): E03.9 - HYPOTHYROIDISM, UNSPECIFIED (6) Anxiety Code(s): F41.9 - ANXIETY DISORDER, UNSPECIFIED (7) Dyspepsia Code(s): R10.13 - EPIGASTRIC PAIN (8) Dysphagia Code(s): R13.10 - DYSPHAGIA, UNSPECIFIED (9) Globus sensation Code(s): R09.89 - OTH SYMPTOMS AND SIGNS INVOLVING THE CIRC AND RESP SYSTEMS (10) Chest pain Code(s): R07.9 - CHEST PAIN, UNSPECIFIED (11) Abdominal bloating Code(s): R14.0 - ABDOMINAL DISTENSION (GASEOUS) Assessment/Plan Assessment: - Flare of GERD associated with a dysphagia-globus sensation but no regurgitation, dyspepsia and gaseous bloating. I believe that her dysphagia is due to the stress induced globus but given her acid reflux a Schatzki ring, a stricture and Segura's esophagus will need to be excluded. I have discussed EGD with biopsy and possible esophageal dilation in detail with Marta. I informed her of the potential for such complications as perforation and hemorrhage. She is in a position to make an informed consent. - Diverticulosis - Marta is due for colon cancer screening. She has a remote FH of colon cancer Plan: -- I discussed antireflux measure and in particular the need to elevate the head of her bed and to pursue weight loss through a low carb, high fiber diet and exercise -- Continue Pantoprazole and Gaviscon -- Marta will call my office to arrange an EGD as an outpatient -- I also advised her to make an appointment in my office to arrange colon cancer screening. -- I have no GI objections to discharge
--- NOTE | 2019-03-20 16:17 | PN ---
Teaching Attending Note Name of Resident: Philippe Hernandez ATTENDING PHYSICIAN STATEMENT I saw and evaluated the patient. I reviewed the resident's note and discussed the case with the resident. I agree with the resident's findings and plan as documented. SUBJECTIVE: No fever or chills. no TOMAS . retrosternal burning is slightly better OBJECTIVE: NAD , awake, alert , pleasant, cooperative . CV; RRR, 2/6 SM at LUSB. Lungs: CTAB Ext : No edema or erythema. on upper or lower extremities . ASSESSMENT AND PLAN: 68 y/o lady with h/o hiatal hernia, GERD, PUD, HTN, HLp, hypothyroidism, chronic lower back pain, disk herniation , cholecystectomy, and BCC on back and other medical problems who presented with CP 1- Atypical CP. due to GERD, possible esophagitis, gastirits /PUD - need EGD . d/w GI, can be done as out pt - prescribe protonix daily ( has limited supply ) 2- H/o HTN : cont her meds of toprol HS 3- h/o hypothyroidism : cont synthroid dc home
[2019-03-20] MEDS: SODIUM CHLORIDE 1,000 ML IV SCH (17:54)
--- NOTE | 2019-03-20 18:34 | DS ---
Physical Exam: SUBJECTIVE: Patient seen and examined. Pt reports improvement in symptoms. No fever, asymptomatic, no more c/o or issues. Denies f/c/n/v/d. OBJECTIVE: Last Vital Signs Temp Pulse Resp BP Pulse Ox 98.0 F 73 16 145/79 100 03/20/19 13:59 03/20/19 13:59 03/20/19 13:59 03/20/19 13:59 03/20/19 16:00 PHYSICAL EXAM GENERAL: Awake, alert, and fully oriented, in no acute distress. EYES: Pupils equal, round and reactive to light, EARS, NOSE, THROAT: Moist mucous membranes. NECK: supple without lymphadenopathy, JVD, LUNGS: Breath sounds equal, clear to auscultation bilaterally. No wheezes, and no crackles. HEART: Regular rate and rhythm, normal S1 and S2 without murmur, rub or gallop. ABDOMEN: Soft, nontender, +distended, normoactive bowel sounds, no guarding, no rebound, MUSCULOSKELETAL: Normal range of motion at all joints. No CVA tenderness. UPPER EXTREMITIES: 2+ pulses, warm, well-perfused. LOWER EXTREMITIES: 2+ pulses, warm, well-perfused. NEUROLOGICAL: Cranial nerves II-XII intact. SKIN: Warm, dry, LABS Laboratory Results - last 24 hr 03/19/19 03/20/19 03/20/19 21:30 05:55 05:55 WBC 10.9 H RBC 4.13 Hgb 13.8 Hct 38.6 D MCV 93.4 MCH 33.4 MCHC 35.7 RDW 13.5 Plt Count 306 MPV 8.6 Absolute Neuts (auto) 8.0 Neutrophils % 73.5 Lymphocytes % 19.2 D Monocytes % 6.9 Eosinophils % 0.0 D Basophils % 0.4 Nucleated RBC % 0 Sodium 141 Potassium 4.1 Chloride 107 Carbon Dioxide 26 Anion Gap 8 BUN 11.5 Creatinine 0.7 Est GFR (CKD-EPI)AfAm 102.46 Est GFR (CKD-EPI)NonAf 88.40 Random Glucose 103 Calcium 8.8 Total Bilirubin 0.8 AST 13 L ALT 22 Alkaline Phosphatase 84 Troponin I < 0.02 Total Protein 7.0 Albumin 3.5 HOSPITAL COURSE: Date of Admission:03/19/19 68 yo F PMH GERD, cholecystectomy, haital hernia, HTN, HLD, hypothyroidism, lower back pain 2/2 disc herniations, PUD, p/w atypical chest pain likely 2/2 to GERD vs esophagitis. We worked up the pt w/ CT abdomen and EKG both of which was found to be negative. Treated the pt with protonix and sulcrafate, which improved the pts symptoms. We consulted GI w/ Dr. Vance, who considered EGD outpt for the pt. We discharged the pt with protonix daily. CT chest: no acute pathology CT a/p no acute pathology EKG normal Current Medications Alprazolam (Xanax -) 0.25 mg PO HS PRN PRN Reason: For Anxiety Sodium Chloride (Normal Saline -) 1,000 mls @ 83 mls/hr IV ASDIR [facility] Last Admin: 03/20/19 17:54 Dose: 83 mls/hr Levothyroxine Sodium (Synthroid -) 75 mcg PO AM [facility] Last Admin: 03/20/19 06:06 Dose: 75 mcg Metoprolol Succinate (Toprol Xl -) 50 mg PO HS [facility] Last Admin: 03/19/19 23:31 Dose: 50 mg Pantoprazole Sodium (Protonix Iv) 40 mg IVPUSH DAILY [facility] Last Admin: 03/20/19 10:01 Dose: 40 mg Rosuvastatin Calcium (Crestor -) 5 mg PO HS [facility] Last Admin: 03/19/19 23:30 Dose: 5 mg Sucralfate (Carafate -) 1 gm PO QID [facility] Last Admin: 03/20/19 17:55 Dose: 1 gm Home Medications Medication Instructions Recorded Alprazolam [Xanax] 0.25 mg PO HS PRN #0 tablet 04/29/13 Metoprolol Succinate [Toprol XL -] 50 mg PO HS #0 tab.sr.24h 04/29/13 Rosuvastatin [Crestor -] 5 mg PO HS #0 tablet 04/29/13 Epinastine HCl 5 ml OU DAILY 03/20/19 Ketorolac 0.5% Eye Drop 1 drop OU BID 03/20/19 Levothyroxine [Synthroid -] 88 mcg PO DAILY 03/20/19 Neomycin/Polymyxin B/Dexametha 3.5 gm OP HS 03/20/19 [Gcxtgo-Ojhxy-Krqkuxb Eye Ointm] Pantoprazole Sodium [Protonix] 40 mg PO DAILY #30 tablet. 03/20/19 Valacyclovir HCl [Valtrex] 500 mg PO DAILY 03/20/19 Date of Discharge: 03/20/19 Minutes to complete discharge: 40 Discharge Summary Problems reviewed: Yes Reason For Visit: CHEST PAIN Current Active Problems Anxiety (Acute) Diverticula of colon (Acute) Dyspepsia (Acute) Dysphagia (Acute) Globus sensation (Acute) Hiatal hernia with GERD (Acute) Hyperlipidemia (Acute) Hypertension (Acute) Hypothyroid (Acute) Condition: Improved - Instructions Diet, Activity, Other Instructions: You were admitted to the hospital for burning chest pain and difficulty breathing. While you were in the hospital, we evaluated you for possible causes of your symptoms with lab work, blood work, imaging such as x rays of your chest, CAT scan of your chest, CAT scan of your Abdomen and EKGs. Your chest pain is likely related to your hiatal hernia. We discussed your pain with Dr. Vance and he agrees that you can have an endoscopy done as an outpatient. Please set up an appointment to see Dr. Vance at his clinic. Continue all your home meds as prescribed Follow up with your primary care physician in 1 week. Return to the emergency room if you have chest pain, shortness of breath, nausea , vomiting or worsening of symptoms. Referrals: Ian Vance MD [Staff Physician] - 1 Week Collins Kaur MD [Primary Care Provider] - 1 Week Disposition: HOME - Home Medications Comprehensive Discharge Medication List: Ambulatory Orders Alprazolam [Xanax] 0.25 mg PO HS PRN #0 tablet 04/29/13 Metoprolol Succinate [Toprol XL -] 50 mg PO HS #0 tab.sr.24h 04/29/13 Rosuvastatin [Crestor -] 5 mg PO HS #0 tablet 04/29/13 Epinastine HCl 5 ml OU DAILY 03/20/19 Ketorolac 0.5% Eye Drop 1 drop OU BID 03/20/19 Levothyroxine [Synthroid -] 88 mcg PO DAILY 03/20/19 Neomycin/Polymyxin B/Dexametha [Vmncuy-Ucesr-Jxuncuf Eye Ointm] 3.5 gm OP HS 06/07 Pantoprazole Sodium [Protonix] 40 mg PO DAILY #30 tablet. 03/20/19 Valacyclovir HCl [Valtrex] 500 mg PO DAILY 03/20/19 This patient is new to me today: Yes Date on this admission: 03/20/19 Emergency Visit: Yes ED Registration Date: 03/19/19 Care time: The patient presented to the Emergency Department on the above date and was hospitalized for further evaluation of their emergent condition. Critical Care patient: No - Discharge Referral Referred to [facility] Med [facility].: No ATTENDING PHYSICIAN STATEMENT I saw and evaluated the patient. I reviewed the resident's note and discussed the case with the resident. I agree with the resident's findings and plan as documented. SUBJECTIVE: OBJECTIVE: ASSESSMENT AND PLAN:
[2019-03-20] MEDS: ROSUVASTATIN CA 5 MG TABLET (FP) PO SCH (21:17)
[2019-03-21 05:54] LABS: BASO % 0.6 % (0-2.0); EOS % 1.2 % (0-4.5); HEMATOCRIT 37.8 % (32.4-45.2); HEMOGLOBIN 12.8 GM/dL (10.7-15.3); LYMPH % 37.1 % (8-40); MCH 31.5 pg (25.7-33.7); MCHC 33.8 g/dl (32.0-36.0); MEAN CELL VOLUME 93.3 fl (80-96); MEAN PLT VOLUME 7.7 fl (7.5-11.1); MONO % 6.9 % (3.8-10.2); NEUT % 54.2 % (42.8-82.8); PLATELET COUNT 249 K/MM3 (134-434); RBC 4.05 M/mm3 (3.60-5.2); RDW 13.7 % (11.6-15.6); WHITE BLOOD COUNT 6.9 K/mm3 (4.0-10.0)
[2019-03-21] MEDS: SODIUM CHLORIDE 1,000 ML IV SCH (06:24)
[2019-03-21] MEDS: LEVOTHYROXINE NA 75 MCG TABLET (FP) PO SCH (06:25)
[2019-03-21 06:44] LABS: ALBUMIN 3.2 g/dl (3.4-5.0); BILIRUBIN,TOTAL 0.5 mg/dL (0.2-1); BLOOD UREA NITROGEN 13.7 mg/dL (7-18); CREATININE 0.6 mg/dL (0.55-1.3); POTASSIUM 3.4 mmol/L (3.5-5.1); TOT PROT 5.8 g/dl (6.4-8.2)
[2019-03-21] MEDS: PANTOPRAZOLE SODIUM 40 MG VIAL IVPUSH SCH (09:50)
[2019-03-21] MEDS: SUCRALFATE 1 GM TABLET (FP) PO SCH ×2 (09:50→14:15)
[2019-03-21] MEDS ORDERED: ALPRAZolam 0.25 MG TABLET PO ONE (10:00)
[2019-03-21 12:55] VITALS: BP 123/83; PULSE 82; TEMP 98.6
[2019-03-21] MEDS ORDERED: PT OWN MED DRAWER 7, Y5N ONE (14:14)
--- NOTE | 2019-03-21 15:05 | HOSP ---
Subjective - Review of Symptoms Events since last encounter: patient did not leave yesterday despite being discharged as she did not get a ride. today she still has burning sensation in her chest . she is trying to eat. she slept well her VS were reviewed. CV: RRR Lungs; CTAB Ext : no edema patient was advised to take protonix and anti-acids as prescribed. to follow with Dr. Vance for EGD . She is to avoid spicey and citrus food and ll food that bother her Physical Examination Vital Signs: Vital Signs Temperature 98.6 F 03/21/19 12:54 Pulse Rate 82 03/21/19 12:54 Respiratory Rate 18 03/21/19 12:54 Blood Pressure 123/83 03/21/19 12:54 O2 Sat by Pulse Oximetry (%) 97 03/21/19 08:00 Labs: CBC, BMP 03/21/19 05:34 03/21/19 05:34
== END 2019-03-21 15:23 | disposition home or self-care (01) ==
LOC: JER 10:38 → JERBED 14:24 → J4S 22:48
PROVIDERS: ADMIT Internal Medicine; ATTEND Internal Medicine
PROC: 3E033NZ Introduction of Analgesics, Hypnotics, Sedatives into Peripheral Vein, Percutaneous Approach (ICD-10-PCS; principal; 2019-03-19)
PROC: 3E0333Z Introduction of Anti-inflammatory into Peripheral Vein, Percutaneous Approach (ICD-10-PCS; 2019-03-19)
PROC: 3E0337Z Introduction of Electrolytic and Water Balance Substance into Peripheral Vein, Percutaneous Approach (ICD-10-PCS; 2019-03-19)
PROC: 3E033GC Introduction of Other Therapeutic Substance into Peripheral Vein, Percutaneous Approach (ICD-10-PCS; 2019-03-19)
DX: R07.89 Other chest pain (principal); I10 Essential (primary) hypertension; E78.5 Hyperlipidemia, unspecified; E03.9 Hypothyroidism, unspecified; K21.9 Gastro-esophageal reflux disease without esophagitis; M54.5 Low back pain; K44.9 Diaphragmatic hernia without obstruction or gangrene; K57.30 Diverticulosis of large intestine without perforation or abscess without bleeding; F41.9 Anxiety disorder, unspecified; R10.13 Epigastric pain; R13.10 Dysphagia, unspecified; R14.0 Abdominal distension (gaseous); R09.89 Other specified symptoms and signs involving the circulatory and respiratory systems; Z87.11 Personal history of peptic ulcer disease; Z91.041 Radiographic dye allergy status; Z91.048 Other nonmedicinal substance allergy status; Z91.013 Allergy to seafood; Z88.2 Allergy status to sulfonamides; Z88.8 Allergy status to other drugs, medicaments and biological substances
CPT/HCPCS: 36415; 71045-TC-FY; 71046-TC-FY; 71275-TC; 74174-TC; 80053; 82150; 82550; 82553; 83690; 84484; 85025; 85610; 85730; 93005; 93010; 96361; 96375; 99284-25; G0378; J7030

== ENCOUNTER 2019-04-10 09:18 | Day surgery (SDC) | payer OTHER ==
[2019-04-09 12:50] VITALS: BMI 29.2
[2019-04-10 11:27] VITALS: TEMP 98.1
[2019-04-10 13:04] VITALS: BP 146/76; PULSE 70
== END 2019-04-10 12:45 | disposition home or self-care (01) ==
LOC: JASU-ENDO 09:18
PROVIDERS: ATTEND Internal Medicine Gastroenterology
PROC: 0DB68ZX Excision of Stomach, Via Natural or Artificial Opening Endoscopic, Diagnostic (ICD-10-PCS; principal; 2019-04-10 11:00)
DX: K21.9 Gastro-esophageal reflux disease without esophagitis (principal); K44.9 Diaphragmatic hernia without obstruction or gangrene
CPT/HCPCS: 88305-TC; 88342-TC

== ENCOUNTER 2020-02-21 09:02 | Emergency (ER) | payer OTHER ==
[2020-02-21 09:20] VITALS: BP 156/66; PULSE 76; TEMP 97; BMI 23.6
--- OUTSIDE RECORDS SUMMARY | 2020-02-21 09:32 | XMS ---
:1950 Author Organization [facility] Support Name Relationship Address Phone RE, RETIRED Unavailable Unavailable Unavailable DAKSHA LOW SON [address] [place] [address] RE Unavailable Unavailable Unavailable DOUGLAS LOW [address] [place] [address] Re-disclosure Warning The records that you are about to access may contain information from federally- assisted alcohol or drug abuse programs. If such information is present, then the following federally mandated warning applies: This information has been disclosed to you from records protected by federal confidentiality rules (42 CFR part 2). The federal rules prohibit you from making any further disclosure of this information unless further disclosure is expressly permitted by the written consent of the person to whom it pertains or as otherwise permitted by 42 CFR part 2. A general authorization for the release of medical or other information is NOT sufficient for this purpose. The Federal rules restrict any use of the information to criminally investigate or prosecute any alcohol or drug abuse patient.The records that you are about to access may contain highly sensitive health information, the redisclosure of which is protected by Article 27-F of the [facility] Public Health law. If you continue you may haveaccess to information: Regarding HIV / AIDS; Provided by facilities licensed or operated by the [facility] Office of Mental Health; or Provided by the [facility] Office for People With Developmental Disabilities. If such information is present, then the following [facility] mandated warning applies: This information has been disclosed to you from confidential records which are protected by state law. State law prohibits you from making any further disclosure of this information without the specific written consent of the person to whom it pertains, or as otherwise permitted by law. Any unauthorized further disclosure in violation of state law may result in a fine or detention sentence or both. A general authorization for the release of medical or other information is NOT sufficient authorization for further disclosure. Insurance Providers Payer name Policy type Policy ID Covered Covered alliance party's Policy P aicha / Coverage alliance party ID relationship to [employer] ormation type schuster KONG [id number] [id number] MEDICARE
--- NOTE | 2020-02-21 10:09 | PDOC ---
History of Present Illness - General Chief Complaint: Head/Neck problem Stated Complaint: PAIN/TINGLING Time Seen by Provider: 02/21/20 09:31 History Source: Patient Exam Limitations: Clinical Condition - History of Present Illness Initial Comments: 02/21/20 10:04 Patient with no significant past medical history present with complaint of several weeks to tension to bilateral neck and upper back due to losing of multiple family members to COVID. Patient also report being very stressful in the past few weeks with intermittent tingling and numbness sensation in bilateral hands and feet. Denies headache, blurry vision, change in vision, nausea, vomiting, fever, chills, dizziness. Patient reported follow-up with PCP a week ago for stress symptoms and was given Ativan to help her sleep and relax. Patient reported symptoms is worse in the morning when she wakes up with pain to bilateral neck area and upper back and improves mildly during the day. Denies any trauma or injury. Denies any other symptoms Is this a multiple visit Asthma Patient?: No Timing/Duration: 1 week Severity: mild Associated Symptoms: reports: denies symptoms Past History - Medical History Allergies/Adverse Reactions: Allergies Allergy/AdvReac Type Severity Reaction Status Date / Time celecoxib [From Celebrex] Allergy Verified 02/21/20 09:20 Iodinated Contrast Media Allergy Verified 02/21/20 09:20 iodine Allergy Verified 02/21/20 09:20 nitrofurantoin Allergy Verified 02/21/20 09:20 [From Macrobid] nitrofurantoin Allergy Verified 02/21/20 09:20 macrocrystalline [From Macrobid] shellfish derived Allergy Verified 02/21/20 09:20 Sulfa (Sulfonamide Allergy Verified 02/21/20 09:20 Antibiotics) Home Medications: Ambulatory Orders Alprazolam [Xanax] 0.25 mg PO HS PRN #0 tablet 04/29/13 Metoprolol Succinate [Toprol XL -] 50 mg PO HS #0 tab.sr.24h 04/29/13 Rosuvastatin [Crestor -] 5 mg PO HS #0 tablet 04/29/13 Epinastine HCl 5 ml OU DAILY 03/20/19 Ketorolac 0.5% Eye Drop 1 drop OU BID 03/20/19 Neomycin/Polymyxin B/Dexametha [Nbaefi-Tulrp-Rgvqqsx Eye Ointm] 3.5 gm OP HS 03/20/19 Valacyclovir HCl [Valtrex] 500 mg PO DAILY 03/20/19 Magnesium Carb/Aluminum Hydrox [Gaviscon Es Tablet Chew] 1 each PO QID PRN #60 tab.chew 03/21/19 Calcium Carbonate [Calcium] 500 mg PO DAILY 04/09/19 Esomeprazole Magnesium 20 mg PO BID 04/09/19 Levothyroxine [Synthroid -] 88 mcg PO DAILY 04/09/19 Famotidine [Acid Controller] 20 mg PO BID #180 tablet 04/10/19 Famotidine [Pepcid -] 40 mg PO DAILY #30 tablet 04/10/19 Famotidine [Pepcid] 20 mg PO BID #180 tablet 04/10/19 Mag Carb/Aluminum Hydrox/Algin [Gaviscon Liquid] 30 ml PO PRN PRN #0 oral.susp 04/10/19 Methocarbamol [Robaxin -] 500 mg PO BID PRN #14 tablet 02/21/20 Methylprednisolone [Medrol Dose Wilder] 4 mg PO ASDIR #21 tablet 02/21/20 Cancer: Yes (SKIN CANCER) Cardiac Disorders: Yes (MVP) COPD: No GI Disorders: (GERD,GASTRITIS) HTN: Yes Hypercholesterolemia: Yes Thyroid Disease: Yes (HYPOTHYROIDISM) - Surgical History Cholecystectomy: Yes - Immunization History Immunization Up to Date: No - Psycho-Social/Smoking History Smoking History: Never smoked Have you smoked in the past 12 months: No Review of Systems - Review of Systems Able to Perform ROS?: Yes Is the patient limited Ivorian proficient: No Constitutional: No: Chills, Fever, Malaise HEENTM: No: Symptoms Reported, See HPI, Eye Pain, Blurred Vision, Tearing, Recent change in vision, Double Vision, Cataracts, Ear Pain, Ocular Prothesis, Ear Discharge, Nose Pain, Nose Congestion, Tinnitus, Nose Bleeding, Hearing Loss, Throat Pain, Throat Swelling, Mouth Pain, Dental Problems, Difficulty Swallowing, Mouth Swelling, Other Respiratory: No: Symptoms reported, See HPI, Cough, Orthopnea, Shortness of Breath, SOB with Exertion, SOB at Rest, Stridor, Wheezing, Productive cough, Hemoptysis, Other Cardiac (ROS): No: Symptoms Reported, See HPI, Chest Pain, Edema, Irregular Heart Rate, Lightheadedness, Palpitations, Syncope, Chest Tightness, Other ABD/GI: No: Symptoms Reported, Nausea, Vomiting Musculoskeletal: Yes: Symptoms Reported, See HPI, Muscle Pain (upper back pain), Neck Pain (b/l posterior neck pain) Integumentary: No: Symptoms Reported Neurological: No: Symptoms reported, Headache, Weakness, Dizziness All Other Systems: Reviewed and Negative *Physical Exam - Vital Signs Last Vital Signs Temp Pulse Resp BP Pulse Ox 97 F L 76 18 156/66 98 02/21/20 09:17 02/21/20 09:17 02/21/20 09:17 02/21/20 09:17 02/21/20 09:17 - Physical Exam 02/21/20 10:08 GENERAL: Well developed, well nourished. Awake and alert. No acute distress. HEENT: Normocephalic, atraumatic. PERRLA, EOMI. No conjunctival pallor. Sclera are non- icteric. Moist mucous membranes. Oropharynx is clear. NECK: Supple. Full ROM. No JVD. Carotid pulses 2+ and symmetric, without bruits. No thyromegaly. No lymphadenopathy. CARDIOVASCULAR: Regular rate and rhythm. No murmurs, rubs, or gallops. Distal pulses are 2+ and symmetric. PULMONARY: No evidence of respiratory distress. Lungs clear to auscultation bilaterally. No wheezing, rales or rhonchi. ABDOMINAL: Soft. Non-tender. Non-distended. No rebound or guarding. No organomegaly. Normoactive bowel sounds. MUSCULOSKELETAL Normal range of motion at all joints. Mild subjective tenderness to muscle of bilateral paracervical spine of C2-C7 and posterior upper scapular with muscle tension. No midline tenderness. No bony deformities or tenderness. SKIN: Warm and dry. Normal capillary refill. No rashes. No no cyanosis NEUROLOGICAL: Alert, awake, appropriate. Cranial nerves 2-12 intact. No deficits to light touch in face, upper extremities and lower extremities. No motor deficits in the in face, upper extremities and lower extremities. Normal speech. Gait is normal without ataxia. PSYCHIATRIC: Cooperative. Good eye contact. Appropriate mood and affect. General Appearance: Yes: Nourished, Appropriately Dressed. No: Apparent Distress ED Treatment Course - RADIOLOGY Radiology Studies Ordered: Category Date Time Status SPINE-CERVICAL [RAD] Stat Radiology 10/04/20 09:50 Taken Medical Decision Making - Medical Decision Making 02/21/20 10:06 Patient with no significant past medical history present with complaint of several weeks to tension to bilateral neck and upper back due to losing of multiple family members to COVID. Patient also report being very stressful in the past few weeks with intermittent tingling and numbness sensation in bilatera l hands and feet. Denies headache, blurry vision, change in vision, nausea, vomiting, fever, chills, dizziness. Patient reported follow-up with PCP a week ago for stress symptoms and was given Ativan to help her sleep and relax. Patient reported symptoms is worse in the morning when she wakes up with pain to bilateral neck area and upper back and improves mildly during the day. Denies any trauma or injury. Denies any other symptoms Exam significant for tenderness more so to bilateral paracervical muscle and upper back on bilateral sides over scapular. Full range of motion of cervical spine. Normal neuro exam. Patient talking in full sentences without any distress. Patient crying intermittently during conversation due to feeling very stressed. Patient reported living alone in her house and her children visit her sometimes but she always feels lonely in her house. Symptoms likely stress related because of muscle tension. X-ray of cervical spine ordered to rule out acute normality. Patient be discharged home on Robaxin PRN for spasm and Medrol pack for inflammatory effect due to allergy to Celebrex if normal x-ray. 02/21/20 10:13 X-ray of the cervical spine shows straightening of the spine consistent with spasm. Patient stable for discharge Medrol pack for inflammatory effect and Robaxin for spasm. Discussed relaxation techniques with patient to help cope with stress. Patient stable for discharge with follow-up with PCP Discharge - Discharge Information Problems reviewed: Yes Clinical Impression/Diagnosis: Anxiety, Muscle spasms of neck Condition: Stable Disposition: HOME - Admission No - Additional Discharge Information Prescriptions: Methylprednisolone [Medrol Dose Wilder] 4 mg PO ASDIR #21 tablet Methocarbamol [Robaxin -] 500 mg PO BID PRN #14 tablet PRN Reason: muscle spasm - Follow up/Referral - Patient Discharge Instructions Patient Printed Discharge Instructions: DI for Muscle Spasm, Understanding and Managing the Stress Response Additional Instructions: X-ray of your neck shows spasm of the muscles of the neck which is likely the cause of your pain. Take prescribed medication as prescribed for pain and spasm. Do Epson salt soaks as discussed to help relax your muscle. Start new hobbies as discussed to help keep you mind of the stress and to help relax. Make a follow-up appoint with your primary care - Post Discharge Activity
== END 2020-02-21 10:36 | disposition home or self-care (01) ==
LOC: JER 09:02
DX: M62.838 Other muscle spasm (principal); F41.9 Anxiety disorder, unspecified
CPT/HCPCS: 72050-TC-FY; 99283-25

== ENCOUNTER 2021-02-25 06:34 | Emergency (ER) | payer OTHER ==
[2021-02-25 07:02] VITALS: BMI 22.9
[2021-02-25] MEDS ORDERED: FAMOTIDINE 20 MG/50 ML IVPB 20 MG/50 ML MG IVPB ONE ×2 (08:28→08:47)
[2021-02-25] MEDS ORDERED: ACETAMINOPHEN 325 MG TABLET (FP) PO ONE (08:28)
[2021-02-25] MEDS ORDERED: MAG HYDROX/AL HYDROX/SIMETH -MYLANTA- ORAL SUSPENSION PO ONE (08:28)
[2021-02-25] MEDS ORDERED: LIDOCAINE VISCOUS 2% ORAL/TOP 15 ML UNIT-DOSE CUP MM ONE (08:32)
[2021-02-25] MEDS ORDERED: ACETAMINOPHEN 325 MG TABLET (FP) ONE (08:46)
[2021-02-25] MEDS ORDERED: MAG HYDROX/AL HYDROX/SIMETH 30 ML UNIT-DOSE CUP ONE (08:46)
[2021-02-25] MEDS ORDERED: LIDOCAINE VISCOUS 2% ORAL/TOP 15 ML UNIT-DOSE CUP ONE (08:46)
[2021-02-25 08:58] LABS: BASO % 0.8 % (0-2.0); EOS % 0.3 % (0-4.5); HEMOGLOBIN 15.3 GM/dL (10.7-15.3); LYMPH % 17.3 % (8-40); MEAN PLT VOLUME 7.6 fl (7.5-11.1); MONO % 7.4 % (3.8-10.2); NEUT % 74.2 % (42.8-82.8); PLATELET COUNT 292 10^3/uL (134-434); RBC 4.94 M/mm3 (3.60-5.2); RDW 14.1 % (11.6-15.6); WHITE BLOOD COUNT 7.9 K/mm3 (4.0-10.0)
[2021-02-25 09:20] LABS: CHLORIDE 104 mmol/L (98-107); SODIUM 141 mmol/L (136-145)
[2021-02-25 09:22] LABS: CALCIUM 9.2 mg/dL (8.5-10.1)
[2021-02-25 09:23] LABS: ALBUMIN 3.8 g/dl (3.4-5.0); ANION GAP 8 MMOL/L (8-16); BLOOD UREA NITROGEN 10.1 mg/dL (7-18); CO2 28 mmol/L (21-32); LIPASE 167 U/L (73-393)
[2021-02-25 09:25] LABS: GLUCOSE,RANDOM 104 mg/dL (74-106)
[2021-02-25 09:26] LABS: CREATININE 0.6 mg/dL (0.55-1.3); SGOT/AST 16 U/L (15-37); SGPT/ALT 19 U/L (13-61)
[2021-02-25 09:28] LABS: BILIRUBIN,TOTAL 0.6 mg/dL (0.2-1); TOT PROT 7.9 g/dl (6.4-8.2)
[2021-02-25 09:29] LABS: ALK PHOS 107 U/L (45-117)
[2021-02-25] MEDS ORDERED: SUCRALFATE 1 GM/10 ML UNIT DOSE CUPS PO ONE (10:23)
[2021-02-25] MEDS ORDERED: SUCRALFATE 1 GM TABLET (FP) ONE (10:28)
[2021-02-25 13:28] VITALS: BP 162/75; PULSE 71; TEMP 98.4
== END 2021-02-25 15:28 | disposition home or self-care (01) ==
LOC: JER 06:34
PROC: 3E033GC Introduction of Other Therapeutic Substance into Peripheral Vein, Percutaneous Approach (ICD-10-PCS; principal; 2021-02-25)
DX: F41.9 Anxiety disorder, unspecified (principal); K21.9 Gastro-esophageal reflux disease without esophagitis
CPT/HCPCS: 36415; 71046-TC-FY; 80053; 82550; 83690; 84484; 85025; 93005; 93010; 99285-25

== ENCOUNTER 2022-01-30 05:19 | Day surgery (SDC) | payer OTHER ==
[2022-01-26 09:45] VITALS: BMI 22.8
[2022-01-30] MEDS ORDERED: LIDOCAINE HCL 2% 100 MG/5 ML DISP.SYRIN ONE (08:19)
[2022-01-30] MEDS ORDERED: PROPOFOL 20 ML ONE (08:20)
[2022-01-30] MEDS ORDERED: MIDAZOLAM HCL 2 MG/2 ML SINGLE DOSE VIAL ONE (08:20)
[2022-01-30] MEDS ORDERED: oxyCODONE HCL 5 MG TABLET PO PRN ×3 (09:13→10:13)
[2022-01-30] MEDS ORDERED: IBUPROFEN 600 MG TABLET (FP) PO PRN (09:13)
[2022-01-30] MEDS ORDERED: IBUPROFEN 800 MG/8 ML IJ IVPB PRN (09:13)
[2022-01-30] MEDS ORDERED: ONDANSETRON 4 MG/2 ML VIAL IVPUSH PRN ×2 (09:13→10:13)
[2022-01-30] MEDS ORDERED: ELECTROLYTE-148 SOLN 1,000 ML IV SCH (09:15)
[2022-01-30] MEDS ORDERED: LIDOCAINE HCL 1%, 10 MG/ML (20ML VIAL) ONE (09:25)
[2022-01-30] MEDS ORDERED: DEXAMETHASONE SOD PHOSPHATE 4 MG/1 ML VIAL ONE (09:28)
[2022-01-30] MEDS ORDERED: KETOROLAC TROMETHAMINE 30 MG/1 ML VIAL ONE (09:28)
[2022-01-30] MEDS ORDERED: ONDANSETRON 4 MG/2 ML VIAL ONE (09:28)
[2022-01-30] MEDS ORDERED: LIDOCAINE HCL 1%, 10 MG/ML (20ML VIAL) NR ONE ×2 (09:30→09:53)
[2022-01-30] MEDS ORDERED: PROMETHAZINE HCL 25 MG/1 ML VIAL IVPUSH PRN (10:13)
[2022-01-30] MEDS ORDERED: LACTATED RINGERS SOLUTION 1,000 ML IV SCH (10:15)
[2022-01-30 12:25] VITALS: RESP 16
[2022-01-30 13:15] VITALS: BP 158/77; PULSE 96; TEMP 97.3
== END 2022-01-30 13:15 | disposition home or self-care (01) ==
LOC: JASU-SURG 05:19
PROVIDERS: ATTEND Obstetrics & Gynecology
PROC: 0UDB7ZX Extraction of Endometrium, Via Natural or Artificial Opening, Diagnostic (ICD-10-PCS; 2022-01-30)
PROC: 0DBQXZZ Excision of Anus, External Approach (ICD-10-PCS; 2022-01-30)
PROC: 0UB98ZX Excision of Uterus, Via Natural or Artificial Opening Endoscopic, Diagnostic (ICD-10-PCS; principal; 2022-01-30 09:00)
DX: N84.0 Polyp of corpus uteri (principal); N90.89 Other specified noninflammatory disorders of vulva and perineum
CPT/HCPCS: 88305-TC; 94760

== ENCOUNTER 2022-04-28 07:23 | Emergency (ER) | payer OTHER ==
[2022-04-28 07:36] VITALS: BP 147/89; PULSE 86; RESP 20; TEMP 98.6; BMI 22.4
[2022-04-28] MEDS ORDERED: ONDANSETRON 4 MG/2 ML VIAL IVPUSH ONE (08:33)
[2022-04-28] MEDS ORDERED: FAMOTIDINE 20 MG/50 ML IVPB 20 MG/50 ML MG IVPB ONE ×2 (08:33→08:39)
[2022-04-28] MEDS ORDERED: ONDANSETRON 4 MG/2 ML VIAL ONE (08:39)
[2022-04-28 09:19] LABS: ALBUMIN 4.4 g/dl (3.4-5.0); BILIRUBIN,TOTAL 1.3 mg/dl (0.2-1); CALCIUM 9.4 mg/dl (8.5-10); CREATININE 0.6 mg/dl (0.55-1.3); HEMATOCRIT 44.3 % (32.4-45.2); HEMOGLOBIN 15.3 G/dL (10.7-15.3); MCH 31.4 pg (25.7-33.7); MCHC 34.5 g/dl (32.0-36.0); MEAN CELL VOLUME 91.2 fl (80-96); MEAN PLT VOLUME 7.9 fl (7.5-11.1); PLATELET COUNT 286.5 10^3/uL (134-434); RBC 4.86 10^6/uL (3.60-5.2); RDW 14.1 % (11.6-15.6); TOT PROT 7.6 g/dl (6.4-8.2); WHITE BLOOD COUNT 7.2 10^3/uL (4.0-10.8)
[2022-04-28 09:24] LABS: PLATELET ESTIMATE ADEQUATE
[2022-04-28] MEDS ORDERED: ACETAMINOPHEN INJECTION 100 ML IVPB ONE (09:25)
[2022-04-28] MEDS ORDERED: ACETAMINOPHEN 1000 MG/100 ML BAG IVPB ONE (09:25)
== END 2022-04-28 11:53 | disposition home or self-care (01) ==
LOC: FER 07:23
PROC: 3E0333Z Introduction of Anti-inflammatory into Peripheral Vein, Percutaneous Approach (ICD-10-PCS; principal; 2022-04-28)
PROC: 3E033GC Introduction of Other Therapeutic Substance into Peripheral Vein, Percutaneous Approach (ICD-10-PCS; 2022-04-28)
PROC: 3E033GC Introduction of Other Therapeutic Substance into Peripheral Vein, Percutaneous Approach (ICD-10-PCS; 2022-04-28)
DX: J02.9 Acute pharyngitis, unspecified (principal); R09.81 Nasal congestion; B97.4 Respiratory syncytial virus as the cause of diseases classified elsewhere
CPT/HCPCS: 0241U-QW; 36415; 80053; 83690; 84484; 85027; 93005; 99284-25

== ENCOUNTER 2022-06-16 14:07 | Emergency (ER) | payer OTHER ==
[2022-06-16 14:53] VITALS: BP 157/72; PULSE 79; RESP 18; TEMP 98; BMI 22.4
[2022-06-16] MEDS ORDERED: LIDOCAINE 5% TOPICAL PATCH TP ONE (15:23)
[2022-06-16] MEDS ORDERED: IBUPROFEN 600 MG TABLET (FP) PO ONE ×2 (15:23→15:32)
[2022-06-16] MEDS ORDERED: LIDOCAINE 5% TOPICAL PATCH ONE (15:32)
[2022-06-16] MEDS ORDERED: LIDOCAINE PATCH REMOVAL MC SCH (22:00)
== END 2022-06-16 18:35 | disposition home or self-care (01) ==
LOC: FER 14:07
DX: M54.50 Low back pain, unspecified (principal)
CPT/HCPCS: 72131-TC; 73630-TC-LT; 99284-25